=== PATIENT | female | born 1950 | race African-American/Black ===

== ENCOUNTER 2021-04-05 11:09 | Emergency (ER) | payer OTHER ==
[2021-04-05 11:15] VITALS: BP 119/65; PULSE 50; TEMP 98; BMI 29.0
[2021-04-05] MEDS ORDERED: ACETAMINOPHEN 500 MG TABLET (FP) PO ONE (11:38)
[2021-04-05] MEDS ORDERED: ACETAMINOPHEN 500 MG TABLET (FP) ONE (11:39)
[2021-04-05] MEDS ORDERED: KETOROLAC TROMETHAMINE 30 MG/1 ML VIAL IM ONE (13:48)
[2021-04-05] MEDS ORDERED: KETOROLAC TROMETHAMINE 30 MG/1 ML VIAL ONE (13:51)
== END 2021-04-05 13:50 | disposition home or self-care (01) ==
LOC: JERFT 11:09 → JER 11:09
PROC: 3E0233Z Introduction of Anti-inflammatory into Muscle, Percutaneous Approach (ICD-10-PCS; principal; 2021-04-05)
DX: S79.911A Unspecified injury of right hip, initial encounter (principal); W01.0XXA Fall on same level from slipping, tripping and stumbling without subsequent striking against object, initial encounter
CPT/HCPCS: 73523-TC-FY; 73700-TC-RT; 99284-25

== ENCOUNTER 2022-12-10 16:15 | Emergency (ER) | payer OTHER ==
[2022-12-10] MEDS ORDERED: KETAMINE HCL 200 MG/20 ML VIAL ONE (16:22)
[2022-12-10] MEDS ORDERED: ROCURONIUM BROMIDE 50 MG/5 ML SYRINGE ONE (16:23)
[2022-12-10 16:25] VITALS: BP 102/74; PULSE 161; RESP 22; BMI 22.6
[2022-12-10] MEDS ORDERED: CALCIUM CHLORIDE 1 GM/10 ML *DISP.SYRIN ONE (16:50)
[2022-12-10] MEDS ORDERED: AMIODARONE HCL 150 MG/3 ML VIAL ONE (16:56)
[2022-12-10 17:19] LABS: BASO % 0.5 % (0-2.0); EOS % 0.1 % (0-4.5); HEMATOCRIT 47.3 % (32.4-45.2); HEMOGLOBIN 15.7 GM/dL (10.7-15.3); LYMPH % 18.8 % (8-40); MCH 27.1 pg (25.7-33.7); MCHC 33.2 g/dl (32.0-36.0); MEAN CELL VOLUME 81.5 fl (80-96); MEAN PLT VOLUME 8.7 fl (7.5-11.1); MONO % 3.4 % (3.8-10.2); NEUT % 77.2 % (42.8-82.8); PLATELET COUNT 404 10^3/uL (134-434); RBC 5.81 M/mm3 (3.60-5.2); RDW 16.9 % (11.6-15.6); WHITE BLOOD COUNT 6.7 K/mm3 (4.0-10.0)
[2022-12-10 17:38] LABS: CHLORIDE 103 mmol/L (98-107); SODIUM 138 mmol/L (136-145)
[2022-12-10 17:40] LABS: CALCIUM 9.9 mg/dL (8.5-10.1)
[2022-12-10 17:41] LABS: ALBUMIN 2.5 g/dl (3.4-5.0); BLOOD UREA NITROGEN 62.6 mg/dL (7-18); CO2 15 mmol/L (21-32); GLUCOSE,RANDOM 142 mg/dL (74-106)
[2022-12-10 17:43] LABS: SGPT/ALT 119 U/L (13-61)
[2022-12-10 17:44] LABS: SGOT/AST 341 U/L (15-37)
[2022-12-10 17:45] LABS: BILIRUBIN,TOTAL 0.7 mg/dL (0.2-1); TOT PROT 8.2 g/dl (6.4-8.2)
[2022-12-10 17:46] LABS: ALK PHOS 123 U/L (45-117)
[2022-12-10 17:48] LABS: ANION GAP 20 MMOL/L (8-16); POTASSIUM 6.1 mmol/L (3.5-5.1)
[2022-12-10 17:57] LABS: LACTIC ACID 5.8 mmol/L (0.4-2.0)
== END 2022-12-10 22:52 | disposition expired ==
LOC: JER 16:15
PROC: 0BH17EZ Insertion of Endotracheal Airway into Trachea, Via Natural or Artificial Opening (ICD-10-PCS; principal; 2022-12-10)
DX: I46.9 Cardiac arrest, cause unspecified (principal); R40.20 Unspecified coma; T22.031A Burn of unspecified degree of right upper arm, initial encounter; R00.0 Tachycardia, unspecified; I95.9 Hypotension, unspecified
CPT/HCPCS: 36415; 80053; 80307; 82962; 83605; 83735; 84484; 85025; 86850; 86900; 86901; 99285-25